=== PATIENT | female | born 1950 | race Caucasian/White ===

== ENCOUNTER 2024-07-24 13:23 | Inpatient (IN) ==
[2024-07-24] MEDS ORDERED: LIDOCAINE 1% 10 ML VIAL SQ ONE (13:24)
[2024-07-24 14:07] LABS: Basophils # (Auto) 0.02 K/mcL (0.00-0.30); Basophils % (Auto) 0.1 % (0.0-2.0); Eosinophils # (Auto) 0.04 K/mcL (0.00-0.70); Eosinophils % (Auto) 0.2 % (0.0-7.0); Hematocrit 33.8 % (34.1-44.9); Hemoglobin 10.6 g/dL (11.2-15.7); Lymphocytes # (Auto) 1.63 K/mcL (1.50-4.80); Mean Cell Volume 81.8 fL (80.0-100.0); Mean Corpuscular HGB Conc 31.4 g/dL (31.0-36.0); Mean Platelet Volume 8.2 fL (8.8-12.5); Monocytes # (Auto) 1.64 K/mcL (0.10-0.90); Monocytes % (Auto) 10.1 % (1.0-12.0); Neutrophils % (Auto) 79.1 % (38.0-78.0); Platelet Count 671 K/mcL (140-440); RBC 4.13 M/mcL (3.59-5.38); Red Cell Distribution Width 13.5 % (11.5-14.5); WBC 16.3 K/mcL (4.5-11.0)
[2024-07-24 14:17] LABS: Partial Thromboplastin Time 27.7 sec (20.0-37.0)
[2024-07-24 14:18] LABS: INR 1.1 (0.9-1.1); Prothrombin Time 15.4 sec (11.9-14.5)
[2024-07-24 14:23] LABS: ALT/SGPT 25 U/L (<40); AST/SGOT 25 U/L (<32); Albumin 3.3 gm/dL (3.2-5.2); Albumin/Globulin Ratio 0.7 (1.0-2.3); Alkaline Phosphatase 109 U/L (39-117); Bilirubin,Total 0.4 mg/dL (0.1-1.0); Blood Urea Nitrogen 11 mg/dL (8-23); Calcium 9.8 mg/dL (8.6-10.4); Carbon Dioxide 21 mmol/L (22-30); Chloride 98 mmol/L (96-108); Globulin 4.5 gm/dL (2.2-3.7); Glomerular Filtration Rate 85; Glucose 147 mg/dL (70-105); Potassium 4.3 mmol/L (3.3-5.1); Sodium 134 mmol/L (133-145)
[2024-07-24] MEDS: LACTATED RINGERS 1,000 ML IV ONE ×2 (14:35→17:53)
[2024-07-24] MEDS: ONDANSETRON 4 MG/2 ML VIAL IV ONE (14:46)
[2024-07-24] MEDS ORDERED: MIDAZOLAM 2 MG/2 ML VIAL ONE (15:15)
[2024-07-24] MEDS ORDERED: fentaNYL 100 MCG/2 ML VIAL ONE (15:15)
[2024-07-24] MEDS: CEFEPIME 2 GM VIAL IV ONE (16:26)
[2024-07-24] MEDS: VANCOMYCIN 1,000 MG in 0.9 % SODIUM CHLORIDE 250 ML IV ONE (16:47)
[2024-07-24] MEDS ORDERED: POTASSIUM CHLORIDE 40 MEQ in DEXTROSE 5% IN WATER 500 ML IV PRN (17:44)
[2024-07-24] MEDS ORDERED: IPRATROPIUM/ALBUTEROL 3 ML AMPUL.NEB NEB PRN (17:44)
[2024-07-24] MEDS ORDERED: DEXTROSE 31 GM ORAL.SUSP PO PRN (17:44)
[2024-07-24] MEDS ORDERED: VANCOMYCIN PER PHARMACY IV SCH (17:44)
[2024-07-24] MEDS ORDERED: METOCLOPRAMIDE 10 MG/2 ML VIAL IV PRN (17:44)
[2024-07-24] MEDS ORDERED: SENNOSIDES 1 TABLET PO PRN (17:44)
[2024-07-24] MEDS ORDERED: ACETAMINOPHEN 325 MG TABLET PO PRN (17:44)
[2024-07-24] MEDS ORDERED: DEXTROSE 50% 50 ML VIAL IV PRN (17:44)
[2024-07-24] MEDS ORDERED: POTASSIUM CHLORIDE 20 MEQ TABLET PO PRN ×2 (17:44)
[2024-07-24] MEDS ORDERED: ONDANSETRON 4 MG/2 ML VIAL IV PRN (17:44)
[2024-07-24] MEDS ORDERED: morphine 4 MG/ML VIAL IV PRN (17:44)
[2024-07-24] MEDS ORDERED: LABETALOL HCL 20 MG/4 ML VIAL IV PRN (17:44)
[2024-07-24] MEDS ORDERED: HYDROcodone/APAP 5/325MG TABLET PO PRN (17:44)
[2024-07-24] MEDS: INSULIN LISPRO 1 UNIT/0.01 ML UNIT SQ SCH (18:01)
[2024-07-24 18:10] LABS: Appearance, Body Fluid Purulent; Color, Body Fluid White
[2024-07-24 19:44] LABS: Appearance,Urine Cloudy (Clear); Bacteria,Urine Mod /hpf (0); Bilirubin,Urine Negative (Negative); Color,Urine Yellow; Glucose,Urine (UA) Negative (Negative); Ketones,Urine Negative (Negative); Leukocyte Esterase,Urine Trace /uL (Negative); Nitrate,Urine Negative (Negative); PH,Urine 5.5 (5.0-9.0); Protein,Urine 100 mg/dL (Negative); Urine Blood Moderate ery/mcL (Negative); Urine RBC 5 /hpf (0-3); Urine Squamous Epithelial Cell 1 /hpf (0-4); Urine WBC 50 /hpf (0-4); Urobilinogen,Urine Normal
[2024-07-24] MEDS: CARVEDILOL 6.25 MG TABLET PO SCH (20:46)
[2024-07-24] MEDS: HEPARIN 5,000 UNIT/ML VIAL SQ SCH (20:47)
[2024-07-24] MEDS: DOCUSATE SODIUM 100 MG CAPSULE PO SCH (20:49)
[2024-07-24] MEDS: 0.9 % SODIUM CHLORIDE 10 ML SYRINGE IV SCH (20:49)
[2024-07-24] MEDS: DEXTROSE 5%-NS 1,000 ML IV SCH (22:28)
[2024-07-25] MEDS: CEFEPIME 2 GM VIAL IV SCH (04:55)
[2024-07-25 06:22] LABS: Basophils # (Auto) 0.02 K/mcL (0.00-0.30); Basophils % (Auto) 0.2 % (0.0-2.0); Eosinophils # (Auto) 0.07 K/mcL (0.00-0.70); Eosinophils % (Auto) 0.6 % (0.0-7.0); Hematocrit 30.3 % (34.1-44.9); Hemoglobin 9.5 g/dL (11.2-15.7); Lymphocytes # (Auto) 1.57 K/mcL (1.50-4.80); Lymphocytes % (Auto) 13.4 % (15.5-49.0); Mean Cell Volume 82.1 fL (80.0-100.0); Mean Corpuscular HGB Conc 31.4 g/dL (31.0-36.0); Mean Platelet Volume 8.9 fL (8.8-12.5); Monocytes # (Auto) 1.41 K/mcL (0.10-0.90); Neutrophils % (Auto) 73.5 % (38.0-78.0); Platelet Count 637 K/mcL (140-440); RBC 3.69 M/mcL (3.59-5.38); Red Cell Distribution Width 13.5 % (11.5-14.5); WBC 11.7 K/mcL (4.5-11.0)
[2024-07-25 07:19] LABS: ALT/SGPT 23 U/L (<40); AST/SGOT 22 U/L (<32); Albumin 2.9 gm/dL (3.2-5.2); Albumin/Globulin Ratio 0.8 (1.0-2.3); Alkaline Phosphatase 94 U/L (39-117); Bilirubin,Direct < 0.2 mg/dL (0-0.3); Bilirubin,Total 0.3 mg/dL (0.1-1.0); Blood Urea Nitrogen 8 mg/dL (8-23); Calcium 8.9 mg/dL (8.6-10.4); Carbon Dioxide 22 mmol/L (22-30); Chloride 101 mmol/L (96-108); Globulin 3.7 gm/dL (2.2-3.7); Glomerular Filtration Rate 95; Glucose 174 mg/dL (70-105); Lactate Dehydrogenase 108 U/L (135-225); Potassium 3.7 mmol/L (3.3-5.1); Sodium 135 mmol/L (133-145); Triglycerides 100 mg/dL (<150); Uric Acid 3.8 mg/dL (2.5-8.0)
[2024-07-25] MEDS: VANCOMYCIN 1,000 MG in 0.9 % SODIUM CHLORIDE 250 ML IV ONE (08:15)
[2024-07-25] MEDS ORDERED: KETAMINE 50 MG/ML Syringe IV ONE (08:36)
[2024-07-25] MEDS ORDERED: fentaNYL 100 MCG/2 ML VIAL ONE (08:37)
[2024-07-25] MEDS ORDERED: PROPOFOL 200 MG/20 ML VIAL IV ONE (08:37)
[2024-07-25] MEDS ORDERED: ONDANSETRON 4 MG/2 ML VIAL ONE (08:39)
[2024-07-25] MEDS ORDERED: GLYCOPYRROLATE 0.2 MG/ML VIAL IV ONE (08:39)
[2024-07-25] MEDS ORDERED: DEXAMETHASONE 10 MG/ML VIAL ONE (08:39)
[2024-07-25] MEDS ORDERED: FAMOTIDINE/PF 20 MG/2 ML VIAL IV ONE (08:59)
[2024-07-25] MEDS ORDERED: SCOPOLAMINE 1 PATCH PATCH TOPICAL PRN (09:00)
[2024-07-25] MEDS ORDERED: ePHEDrine 50 MG/5 ML SYRINGE (ANEST) IV ONE (09:09)
[2024-07-25] MEDS ORDERED: ONDANSETRON 4 MG/2 ML VIAL IV PRN (09:10)
[2024-07-25] MEDS ORDERED: fentaNYL 100 MCG/2 ML VIAL IV PRN (09:10)
[2024-07-25] MEDS: LIDOCAINE 2% URO-JET 10 ML JEL.PF.APP UR ONE (09:20)
[2024-07-25] MEDS: IOVERSOL 50 ML VIAL IJ ONE (09:20)
[2024-07-25] MEDS ORDERED: MIRABEGRON 25 MG TAB.ER.24H PO PRN (10:02)
[2024-07-25] MEDS: LEVOTHYROXINE 100 MCG TABLET PO SCH (11:16)
[2024-07-25] MEDS: OMEPRAZOLE 20 MG CAPSULE PO SCH (11:16)
[2024-07-25] MEDS: ATORVASTATIN 20 MG TABLET PO SCH (11:42)
[2024-07-25] MEDS: VENLAFAXINE 37.5 MG TABLET PO SCH (11:42)
[2024-07-25] MEDS: amLODIPine 10 MG TABLET PO SCH (11:43)
[2024-07-25] MEDS: LACTATED RINGERS 1,000 ML IV SCH (13:29)
[2024-07-25] MEDS: VANCOMYCIN 1,000 MG in 0.9 % SODIUM CHLORIDE 250 ML IV SCH (21:02)
[2024-07-26 08:33] LABS: Basophils # (Auto) 0.01 K/mcL (0.00-0.30); Basophils % (Auto) 0.1 % (0.0-2.0); Eosinophils # (Auto) 0 K/mcL (0.00-0.70); Eosinophils % (Auto) 0 % (0.0-7.0); Hematocrit 32.7 % (34.1-44.9); Lymphocytes # (Auto) 2.03 K/mcL (1.50-4.80); Lymphocytes % (Auto) 13.7 % (15.5-49.0); Mean Cell Volume 84.1 fL (80.0-100.0); Mean Corpuscular HGB Conc 30.6 g/dL (31.0-36.0); Mean Platelet Volume 8.8 fL (8.8-12.5); Monocytes # (Auto) 0.87 K/mcL (0.10-0.90); Monocytes % (Auto) 5.9 % (1.0-12.0); Neutrophils % (Auto) 79.6 % (38.0-78.0); Platelet Count 619 K/mcL (140-440); RBC 3.89 M/mcL (3.59-5.38); Red Cell Distribution Width 13.6 % (11.5-14.5); WBC 14.8 K/mcL (4.5-11.0)
[2024-07-26 08:53] LABS: ALT/SGPT 32 U/L (<40); AST/SGOT 27 U/L (<32); Albumin 3.1 gm/dL (3.2-5.2); Albumin/Globulin Ratio 0.7 (1.0-2.3); Alkaline Phosphatase 102 U/L (39-117); Bilirubin,Direct < 0.2 mg/dL (0-0.3); Bilirubin,Total < 0.2 mg/dL (0.1-1.0); Blood Urea Nitrogen 9 mg/dL (8-23); Calcium 9.2 mg/dL (8.6-10.4); Carbon Dioxide 20 mmol/L (22-30); Chloride 103 mmol/L (96-108); Globulin 4.3 gm/dL (2.2-3.7); Glomerular Filtration Rate 95; Glucose 200 mg/dL (70-105); Lactate Dehydrogenase 138 U/L (135-225); Phosphorous 2.5 mg/dL (2.5-4.5); Potassium 3.9 mmol/L (3.3-5.1); Sodium 137 mmol/L (133-145); Triglycerides 91 mg/dL (<150); Uric Acid 3.8 mg/dL (2.5-8.0)
[2024-07-26] MEDS: MAGNESIUM SULFATE 2 GM/50 ML BAG IV PRN (09:42)
[2024-07-27 06:05] LABS: Basophils # (Auto) 0.02 K/mcL (0.00-0.30); Basophils % (Auto) 0.2 % (0.0-2.0); Eosinophils # (Auto) 0.14 K/mcL (0.00-0.70); Eosinophils % (Auto) 1.1 % (0.0-7.0); Hematocrit 28.7 % (34.1-44.9); Hemoglobin 8.9 g/dL (11.2-15.7); Lymphocytes # (Auto) 2.37 K/mcL (1.50-4.80); Lymphocytes % (Auto) 18.5 % (15.5-49.0); Mean Cell Volume 82.7 fL (80.0-100.0); Mean Platelet Volume 8.7 fL (8.8-12.5); Monocytes # (Auto) 1.24 K/mcL (0.10-0.90); Monocytes % (Auto) 9.7 % (1.0-12.0); Platelet Count 705 K/mcL (140-440); RBC 3.47 M/mcL (3.59-5.38); Red Cell Distribution Width 13.7 % (11.5-14.5); WBC 12.8 K/mcL (4.5-11.0)
[2024-07-27 06:23] LABS: ALT/SGPT 34 U/L (<40); AST/SGOT 21 U/L (<32); Albumin 2.9 gm/dL (3.2-5.2); Albumin/Globulin Ratio 0.8 (1.0-2.3); Alkaline Phosphatase 88 U/L (39-117); Bilirubin,Direct < 0.2 mg/dL (0-0.3); Bilirubin,Total < 0.2 mg/dL (0.1-1.0); Blood Urea Nitrogen 13 mg/dL (8-23); Calcium 8.3 mg/dL (8.6-10.4); Carbon Dioxide 22 mmol/L (22-30); Chloride 105 mmol/L (96-108); Globulin 3.6 gm/dL (2.2-3.7); Glomerular Filtration Rate 95; Glucose 135 mg/dL (70-105); Lactate Dehydrogenase 115 U/L (135-225); Phosphorous 2.9 mg/dL (2.5-4.5); Potassium 3.7 mmol/L (3.3-5.1); Sodium 140 mmol/L (133-145); Triglycerides 110 mg/dL (<150); Uric Acid 4.2 mg/dL (2.5-8.0)
[2024-07-27 08:44] LABS: Anisocytosis 1+ (None Seen); Eosinophils % (Manual) 1 % (0-7); Hypochromasia 1+ (None Seen); Lymphocytes % 17 % (15-49); Monocytes % (Manual) 7 % (1-12); Platelet Estimate INCREASED (Normal); RBC Morphology ABNORMAL (Normal); Reactive Lymphocytes 1 % (0-2); Segmented Neutrophils % 74 % (38-78)
[2024-07-27] MEDS ORDERED: IOPAMIDOL 100 ML BOTTLE IV ONE (08:54)
[2024-07-27] MEDS: MAGNESIUM OXIDE 400 MG TABLET PO SCH (09:45)
[2024-07-27] MEDS: MAGNESIUM SULFATE 2 GM/50 ML BAG IV SCH (09:57)
[2024-07-27] MEDS: POLYETHYLENE GLYCOL 3350 17 GM PACKET PO PRN (14:55)
[2024-07-28 05:51] LABS: Basophils # (Auto) 0.03 K/mcL (0.00-0.30); Basophils % (Auto) 0.3 % (0.0-2.0); Eosinophils # (Auto) 0.24 K/mcL (0.00-0.70); Eosinophils % (Auto) 2.6 % (0.0-7.0); Hematocrit 30.3 % (34.1-44.9); Hemoglobin 9.4 g/dL (11.2-15.7); Lymphocytes # (Auto) 2.22 K/mcL (1.50-4.80); Lymphocytes % (Auto) 23.7 % (15.5-49.0); Mean Cell Volume 82.8 fL (80.0-100.0); Mean Platelet Volume 8.4 fL (8.8-12.5); Monocytes # (Auto) 1.02 K/mcL (0.10-0.90); Monocytes % (Auto) 10.9 % (1.0-12.0); Neutrophils % (Auto) 61.3 % (38.0-78.0); Platelet Count 693 K/mcL (140-440); RBC 3.66 M/mcL (3.59-5.38); Red Cell Distribution Width 13.8 % (11.5-14.5); WBC 9.4 K/mcL (4.5-11.0)
[2024-07-28 06:23] LABS: ALT/SGPT 24 U/L (<40); AST/SGOT 12 U/L (<32); Albumin 2.7 gm/dL (3.2-5.2); Albumin/Globulin Ratio 0.7 (1.0-2.3); Alkaline Phosphatase 92 U/L (39-117); Bilirubin,Direct < 0.2 mg/dL (0-0.3); Bilirubin,Total 0.2 mg/dL (0.1-1.0); Blood Urea Nitrogen 10 mg/dL (8-23); Calcium 8.6 mg/dL (8.6-10.4); Carbon Dioxide 23 mmol/L (22-30); Chloride 106 mmol/L (96-108); Globulin 3.8 gm/dL (2.2-3.7); Glomerular Filtration Rate 95; Glucose 163 mg/dL (70-105); Lactate Dehydrogenase 104 U/L (135-225); Phosphorous 3.1 mg/dL (2.5-4.5); Potassium 3.7 mmol/L (3.3-5.1); Sodium 140 mmol/L (133-145); Triglycerides 136 mg/dL (<150)
[2024-07-28 18:12] LABS: Nucleated Cells,Body Fld 404000 /cumm
== END 2024-07-28 11:53 | disposition home or self-care (01) | DRG 659 ==
LOC: ED 13:23 → MEDSUR 15:19
PROVIDERS: ADMIT Internal Medicine; ATTEND Internal Medicine